=== PATIENT | male | born 1985 | race Caucasian/White ===

== ENCOUNTER → 2021-11-21 | Day surgery (SDC) | payer MEDICARE, MEDICAID ==
[~2021-11-21] MED LIST: Dexamethasone 4 MG/ML SDV ONE; Lactated Ringers 1,000 ML IV SCH; Lidocaine 2% 5 ML SDV ONE; Midazolam 1 MG/ML 2 ML SDV ONE; Ondansetron 4 MG/2 ML SDV ONE; Phenylephrine 1% 10 MG/ML SDV ONE; Propofol 200 MG/20 ML SDV ONE; Succinylcholine 200 MG/10 ML MDV ONE; ePHEDrine 50 MG/ML SDV ONE; fentaNYL 100 MCG/2 ML SDV ONE
== END ==
LOC: CC.SDS 10:28
PROVIDERS: ATTEND Dentist General Practice
DX: Z01.20 Encounter for dental examination and cleaning without abnormal findings (principal); G35 Multiple sclerosis; T14.8XXA Other injury of unspecified body region, initial encounter; E55.9 Vitamin D deficiency, unspecified; E53.8 Deficiency of other specified B group vitamins
CPT/HCPCS: 00170; J0330; J1100; J2250; J2370; J2405; J2704; J3010; J7120; U0002